=== PATIENT | male | born 1990 | race Caucasian/White ===

== ENCOUNTER → 2019-03-11 | Outpatient (CLI) | payer BC ==
--- NOTE | 2019-03-13 07:55 | 24HR ---
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 The study duration was 24 hours and the technical quality was good. Predominant rhythm sinus rhythm at an average heart rate of 67 bpm, range 42-138 bpm. 2. Occasional isolated atrial premature complexes. No episodes of atrial fibrillation or atrial flutter. No paroxysms of supraventricular tachycardia. Longest RR interval 1.7 seconds. No heart block. No pauses. 3. Occasional, isolated premature ventricular complexes. No episodes of ventricular tachycardia. 4. Symptoms reported as heart pounding corresponded to isolated premature ventricular complexes. Electronically Signed On 03-13-2019 7:55:11 CDT by Bulmaro Schmid [email or web address] ��������������������������������������������� <ELECTRONICALLY SIGNED> ���������������������������������������� By: Bulmaro Schmid MD, [facility] ��������������������������������������������� 03/13/19 0755 1145 1145 Bulmaro Schmid MD, [facility] /EPI
== END ==
LOC: CV 11:02
DX: R07.9 Chest pain, unspecified (principal)